=== PATIENT | male | born 1980 | race Caucasian/White ===

== ENCOUNTER 2017-05-13 06:09 | Emergency (ER) | payer BC ==
[~2017-05-13] VITALS: Ht 170.2 cm; Wt 90.0 kg
[~2017-05-13 06:09] MED LIST: COLC0.6T69 PO
[2017-05-13] MEDS ORDERED: predniSONE 20 mg tablet PO ONE (06:55)
[2017-05-13] MEDS ORDERED: ibuprofen tablet 400 MG TABLET PO ONE (06:55)
[2017-05-13] MEDS ORDERED: HYDR-3965 PO (06:56)
[2017-05-13] MEDS ORDERED: ONDA4TAB9 PO (06:56)
[2017-05-13] MEDS ORDERED: IBUP-1984 PO (06:56)
[2017-05-13 07:25] LABS: BASOPHILS % (AUTO) 0.1 % (0-1); EOSINOPHILS # (AUTO) 0.2 X10'3 (0-0.9); EOSINOPHILS % (AUTO) 1.4 % (0-6); HEMATOCRIT 37.5 % (42.0-52.0); HEMOGLOBIN 13.4 g/dl (14.0-17.9); LYMPHOCYTES # (AUTO) 1.8 X10'3 (1.1-4.8); LYMPHOCYTES % (AUTO) 16.9 % (21-51); MEAN CORPUSCULAR HEMOGLOBIN 33.4 PG (27.0-31.0); MEAN CORPUSCULAR HGB CONC 35.8 % (33.0-36.5); MEAN CORPUSCULAR VOLUME 93.2 FL (78-98); MEAN PLATELET VOLUME 8.2 FL (7.4-10.4); MONOCYTES # (AUTO) 0.7 X10'3 (0-0.9); MONOCYTES % (AUTO) 6.3 % (2-12); NEUTROPHILS # (AUTO) 8.1 X10'3 (1.8-7.7); NEUTROPHILS % (AUTO) 75.3 % (42-75); PLATELET COUNT 166 X10'3 (140-440); RED BLOOD COUNT 4.02 X10'6 (4.70-6.10); RED CELL DISTRIBUTION WIDTH 14.1 % (11.5-14.5); WHITE BLOOD COUNT 10.8 X10'3 (4.5-11.0)
[2017-05-13 07:40] LABS: ALANINE AMINOTRANSFERASE 57 U/L (12-78); ALBUMIN 4.5 G/DL (3.4-5.0); ALBUMIN/GLOBULIN RATIO 1.2 (1.1-1.5); ALKALINE PHOSPHATASE 41 IU/L (46-116); ANION GAP 15 (8-16); ASPARTATE AMINO TRANSFERASE 35 U/L (10-37); BILIRUBIN,TOTAL 0.7 MG/DL (0.1-1.0); BLOOD UREA NITROGEN 12 MG/DL (7-18); BUN/CREATININE RATIO 13.6 (5.4-32.0); CALCIUM 9.4 MG/DL (8.5-10.1); CHLORIDE 101 MMOL/L (99-107); CREATININE 0.88 MG/DL (0.60-1.10); GLUCOSE 114 MG/DL (70-104); MAGNESIUM 1.5 MG/DL (1.5-2.4); POTASSIUM 3.4 MMOL/L (3.5-5.1); SODIUM 136 MMOL/L (135-145); TOTAL CARBON DIOXIDE 19.6 MMOL/L (24-32); TOTAL PROTEIN 8.2 G/DL (6.4-8.2); eGFR > 90 ML/MIN
[2017-05-13] MEDS ORDERED: HYDROcodone/acetaminophen 10/325mg tab PO ONE (08:05)
[2017-05-13] MEDS ORDERED: ondansetron 4mg rapidly disintigrating tab PO ONE (08:05)
[2017-05-13 08:28] VITALS: BP 140/90
== END 2017-05-13 08:38 | disposition home or self-care (01) ==
LOC: ER 06:10
DX: M25.422 Effusion, left elbow (principal); M10.9 Gout, unspecified; K21.9 Gastro-esophageal reflux disease without esophagitis
CPT/HCPCS: 36415; 73080; 80053; 83605; 83735; 84145; 84550; 85025; 87040; 99285; J7512